=== PATIENT | female | born 1960 | race Caucasian/White ===

== ENCOUNTER 2024-12-02 15:34 | Emergency (ER) | payer MEDICARE, MEDICAID, SELFPAY ==
[2024-12-02 15:50] VITALS: BP 145/86; PULSE 75; TEMP 37.4; O2SAT 98; BMI 20.2
--- NOTE | 2024-12-02 16:32 | ED_ITS ---
HPI HPI - General Adult General Chief complaint: Extremity Problem, Nontraumatic Stated complaint: POSS CELLULITIS ANKLE Time Seen by Provider: 12/02/24 16:02 Source: patient Mode of arrival: walk-in Limitations: no limitations History of Present Illness HPI narrative: Patient is a 64-year-old female with multiple medical problems who presents chiefly for a complaint of pain in the left ankle and leg. She states that 2 years ago she had a small wound overlying the medial malleolus of the left ankle. She assumed it was a spider bite. That wound never completely healed. She has had pain off and on in the left foot. 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 2 years ago she was diagnosed with rectal cancer and has a stricture of the rectum which makes it difficult for her to have a bowel movement. She has declined surgery. She states she also has been diagnosed with cancer of the bladder, ureter and kidney. She has been receiving immune therapy from the [facility]. At age 53 which was 11 years ago she was diagnosed with uterine cancer and had radiation therapy for that. She states that she takes about over 5-10 Dulcolax tablets to have a bowel movement. 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 She has been on a variety of anticoagulants and currently is maintained on Lovenox 50 mg every 12 hours. 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 She had pulmonary embolism 11 years ago and then 8 years ago also. Patient states she went to [facility] 5 days ago for her foot problem and was placed on oral doxycycline. She was given injectable Dilaudid in the ED. She states her symptoms are not better. The pain that she reports in the distal left lower leg and ankle has a burning stinging quality. She is on gabapentin 300 mg which she only takes once a day. Related Data Home Medications ?Medication ?Instructions ?Recorded ?Confirmed buspirone 10 mg tablet 10 mg PO Q12H 12/02/24 12/02/24 enoxaparin 60 mg/0.6 mL 60 mg subcut Q12H 12/02/24 12/02/24 subcutaneous syringe fentanyl 12 mcg/hr transdermal 2 patch transdermal Q72H 12/02/24 12/02/24 patch gabapentin 300 mg capsule 300 mg PO Q8H 12/02/24 12/02/24 lamotrigine 200 mg tablet 200 mg PO DAILY 12/02/24 12/02/24 lamotrigine 25 mg tablet 50 mg PO DAILY 12/02/24 12/02/24 mirtazapine 15 mg tablet 15 mg PO DAILY 12/02/24 12/02/24 oxycodone 10 mg tablet 10 mg PO Q4H PRN pain 12/02/24 12/02/24 quetiapine 400 mg tablet 400 mg PO DAILY 12/02/24 12/02/24 Previous Rx's ?Medication ?Instructions ?Recorded hydrocodone 5 mg-acetaminophen 325 1 tab PO TID PRN pain #9 tabs 12/02/24 mg tablet Allergies Allergy/AdvReac Type Severity Reaction Status Date / Time ondansetron (From Zofran) AdvReac Severe Unknown Verified 12/02/24 15:50 Penicillins AdvReac Severe Unknown Verified 12/02/24 15:50 Sulfa (Sulfonamide AdvReac Severe Unknown Verified 12/02/24 15:50 Antibiotics) Opioid HPI Opioid Management Most Recent Opioid Data: Last Pain Scale 8 12/02/24 15:56 12/02/24 Review of Systems ROS Status of ROS 10 or more systems reviewed and unremark able except as noted in history and below [facility] Social History Little interest or pleasure in doing things: not at all Feeling down, depressed, or hopeless: not at all Exam Narrative Exam Narrative: Patient is distressed and tearful on examination more so because of her circumstances. Her vital signs are quite stable. HEENT exam is normal to inspection. Neck is supple. Lung sounds are clear to auscultation bilaterally with good air entry. Heart has regular rate and rhythm. Abdomen soft and benign. Examination of the left leg reveals a venous stasis dermatitis involving the distal lower leg, ankle with some discoloration of the foot. There is a scabbed over superficial ulcer measuring 1 cm approximately in diameter overlying the medial malleolus. There is no underlying fluctuance, induration or ascending lymphangitis. This is more consistent with a venous ulcer and I suspect the pain that she is experiencing in her left ankle and leg is due to peripheral neuropathy for which she has multiple bases. There was some tenderness in the calf also but no redness or warmth. The right leg was unremarkable in appearance. Constitutional Vital Signs, click to edit/add: Last Vital Signs Temp 99.4 F 12/02/24 15:50 Pulse 75 12/02/24 15:50 Resp 18 12/02/24 15:50 BP 145/86 H 12/02/24 15:50 Pulse Ox 98 12/02/24 15:50 O2 Del Method Room Air 12/02/24 15:50 Course Vital Signs Vital signs: Vital Signs Temperature 99.4 F 12/02/24 15:50 Pulse Rate 75 12/02/24 15:50 Respiratory Rate 18 12/02/24 15:50 Blood Pressure 145/86 H 12/02/24 15:50 Pulse Oximetry 98 12/02/24 15:50 Oxygen Delivery Method Room Air 12/02/24 15:50 Temperature 99.4 F 12/02/24 15:50 Pulse Rate 75 12/02/24 15:50 Respiratory Rate 18 12/02/24 15:50 Blood Pressure 145/86 H 12/02/24 15:50 Pulse Oximetry 98 12/02/24 15:50 Oxygen Delivery Method Room Air 12/02/24 15:50 Medical Decision Making MDM Narrative Medical decision making narrative: Patient presents with what appears to be neuropathic pain in the left leg and has evidence of chronic venous congestion based on a superficial ulcer over the medial malleolus and venous stasis dermatitis. Doppler studies were obtained of both legs and she has a superficial clot in the left leg. No DVTs reported and she is already on Lovenox. I do not feel that she has cellulitis in that leg and I am treating her neuropathic pain with an extra dose of gabapentin that I have advised her to take so that she will now be taking 300 mg of gabapentin twice a day. She has a pain managed by hospice with oxycodone and fentanyl patch but because of this breakthrough pain I am placing her on a 3-day course of [place] tablets every 6 hours. I have advised her to follow-up with pain management and hospice for better pain control. She is to follow-up with her PCP for further management and may return anytime for worsening symptoms. Discharge Plan Discharge Chief Complaint: Extremity Problem, Nontraumatic Clinical Impression: Neuropathic pain of foot Patient Disposition: Home, Self-Care Time of Disposition Decision: 18:04 Condition: Fair Mode of Transportation: Private Vehicle Prescriptions / Home Meds: New hydrocodone-acetaminophen 5-325 mg tablet 1 tab PO TID PRN (Reason: pain) Qty: 9 0RF No Action buspirone 10 mg tablet 10 mg PO Q12H enoxaparin 60 mg/0.6 mL syringe 60 mg subcut Q12H fentanyl 12 mcg/hr patch 72 hour 2 patch transdermal Q72H gabapentin 300 mg capsule 300 mg PO Q8H lamotrigine 200 mg tablet 200 mg PO DAILY lamotrigine 25 mg tablet 50 mg PO DAILY mirtazapine 15 mg tablet 15 mg PO DAILY oxycodone 10 mg tablet 10 mg PO Q4H PRN (Reason: pain) quetiapine 400 mg tablet 400 mg PO DAILY Print Language: Kazakh Instructions: Peripheral Neuropathy (ED) Additional Instructions: Start taking 300 mg of gabapentin twice a day. Contact your PCP and other specialists for further management. Follow-up with pain management for further evaluation. Return for worsening symptoms. Referrals: RABIA DUGAN [Primary Care Provider] - 1 week Discharge Date/Time: 12/02/24 18:42
== END 2024-12-02 18:42 | disposition home or self-care (01) ==
PROVIDERS: Emergency Provider Emergency Medicine; PCP Nurse Practitioner
DX: G62.9 Polyneuropathy, unspecified (principal); Z85.51 Personal history of malignant neoplasm of bladder; Z85.528 Personal history of other malignant neoplasm of kidney; Z85.54 Personal history of malignant neoplasm of ureter; Z85.048 Personal history of other malignant neoplasm of rectum, rectosigmoid junction, and anus; Z86.718 Personal history of other venous thrombosis and embolism; Z79.01 Long term (current) use of anticoagulants; Z86.711 Personal history of pulmonary embolism; Z79.899 Other long term (current) drug therapy; I87.8 Other specified disorders of veins
CPT/HCPCS: 93970; 99284